=== PATIENT | female | born 1950 | race Caucasian/White ===

== ENCOUNTER 2021-07-09 09:03 | Outpatient (CLI) | payer MEDICARE, BC | END 2021-07-09 09:04 | disposition home or self-care (01) | LOC: BICULT 09:03 | PROVIDERS: ATTEND Internal Medicine | DX: R60.0 Localized edema (principal) ==

== ENCOUNTER 2022-12-24 07:50 | Outpatient (CLI) | payer MEDICARE, BC ==
[2022-12-24] MEDS ORDERED: Iopamidol-370 76% 500 ML 1 ML ONE (17:14)
== END 2022-12-24 07:51 | disposition home or self-care (01) ==
LOC: BICCT 07:50
PROVIDERS: ATTEND Internal Medicine Gastroenterology
DX: Z12.11 Encounter for screening for malignant neoplasm of colon (principal); R10.13 Epigastric pain; K21.9 Gastro-esophageal reflux disease without esophagitis; R13.10 Dysphagia, unspecified; K44.9 Diaphragmatic hernia without obstruction or gangrene
CPT/HCPCS: 74177; Q9967

== ENCOUNTER 2024-10-05 10:41 | Day surgery (SDC) | payer MEDICARE, BC ==
[~2024-10-05 10:41] MED LIST: ROMOSOZUMAB-AQQG 105 MG/1.17 ML SYR SQ SCH
[2024-10-05] MEDS: ROMOSOZUMAB-AQQG 105 MG/1.17 ML SYR SQ SCH (11:04)
[2024-10-05 11:46] VITALS: BP 149/67; TEMP 98
== END 2024-10-05 11:48 | disposition home or self-care (01) ==
LOC: ONC/OP 10:41
PROVIDERS: ATTEND Internal Medicine
DX: M81.0 Age-related osteoporosis without current pathological fracture (principal); E78.00 Pure hypercholesterolemia, unspecified; E11.9 Type 2 diabetes mellitus without complications; I10 Essential (primary) hypertension; Z79.899 Other long term (current) drug therapy; Z79.84 Long term (current) use of oral hypoglycemic drugs; Z90.710 Acquired absence of both cervix and uterus; Z79.82 Long term (current) use of aspirin; Z98.890 Other specified postprocedural states; Z88.0 Allergy status to penicillin
CPT/HCPCS: 96401; J3111

== ENCOUNTER 2024-11-02 10:43 | Day surgery (SDC) | payer MEDICARE, BC ==
[2024-11-02] MEDS: ROMOSOZUMAB-AQQG 105 MG/1.17 ML SYR SQ SCH (10:57)
[2024-11-02 13:21] VITALS: BP 134/84; TEMP 98.3
== END 2024-11-02 13:21 | disposition home or self-care (01) ==
LOC: ONC/OP 10:43
PROVIDERS: ATTEND Internal Medicine
DX: M81.0 Age-related osteoporosis without current pathological fracture (principal); Z88.0 Allergy status to penicillin
CPT/HCPCS: 96401; J3111

== ENCOUNTER 2024-11-30 10:49 | Day surgery (SDC) | payer MEDICARE, BC ==
[2024-11-30 10:58] VITALS: TEMP 98.2
[2024-11-30] MEDS: ROMOSOZUMAB-AQQG 105 MG/1.17 ML SYR SQ SCH (11:02)
[2024-11-30 11:10] VITALS: BP 138/67
== END 2024-11-30 11:10 | disposition home or self-care (01) ==
LOC: ONC/OP 10:49
PROVIDERS: ATTEND Internal Medicine
DX: M81.0 Age-related osteoporosis without current pathological fracture (principal)
CPT/HCPCS: 96372; J3111

== ENCOUNTER 2025-06-21 10:43 | Day surgery (SDC) | payer MEDICARE, BC ==
[2025-06-21] MEDS: ROMOSOZUMAB-AQQG 105 MG/1.17 ML SYR SQ SCH (11:14)
[2025-06-21 11:34] VITALS: BP 136/64; TEMP 98.1
== END 2025-06-21 11:34 | disposition home or self-care (01) ==
LOC: ONC/OP 10:43
PROVIDERS: ATTEND Internal Medicine
DX: M81.0 Age-related osteoporosis without current pathological fracture (principal)
CPT/HCPCS: 96372; J3111

== ENCOUNTER 2025-07-19 10:40 | Day surgery (SDC) | payer MEDICARE, BC ==
[2025-07-19] MEDS: ROMOSOZUMAB-AQQG 105 MG/1.17 ML SYR SQ SCH (11:02)
[2025-07-19 12:03] VITALS: BP 135/66; TEMP 98.6
== END 2025-07-19 12:03 | disposition home or self-care (01) ==
LOC: ONC/OP 10:40
PROVIDERS: ATTEND Internal Medicine
DX: M81.0 Age-related osteoporosis without current pathological fracture (principal)
CPT/HCPCS: 96401; J3111

== ENCOUNTER 2025-08-23 10:50 | Day surgery (SDC) | payer MEDICARE, BC ==
[2025-08-23 11:12] VITALS: BP 135/63; TEMP 97.8
[2025-08-23] MEDS: ROMOSOZUMAB-AQQG 105 MG/1.17 ML SYR SQ SCH (11:12)
== END 2025-08-23 11:23 | disposition home or self-care (01) ==
LOC: ONC/OP 10:50
PROVIDERS: ATTEND Internal Medicine
DX: M81.0 Age-related osteoporosis without current pathological fracture (principal); I10 Essential (primary) hypertension; E78.00 Pure hypercholesterolemia, unspecified; Z88.1 Allergy status to other antibiotic agents; Z90.710 Acquired absence of both cervix and uterus; Z79.82 Long term (current) use of aspirin; Z79.899 Other long term (current) drug therapy
CPT/HCPCS: 96372; J3111

== ENCOUNTER 2025-08-31 09:22 | Outpatient (CLI) | payer MEDICARE, BC | END 2025-08-31 09:23 | disposition home or self-care (01) | LOC: SCSBT 09:22 | PROVIDERS: ATTEND Internal Medicine | DX: Z13.820 Encounter for screening for osteoporosis (principal); Z78.0 Asymptomatic menopausal state; M81.0 Age-related osteoporosis without current pathological fracture | CPT/HCPCS: 77080 ==